=== PATIENT | male | born 1995 | race Caucasian/White ===

== ENCOUNTER 2017-10-29 21:15 | Emergency (ER) | payer SELFPAY ==
[2017-10-29 21:20] VITALS: TEMP 37.2
[2017-10-29] MEDS ORDERED: ACETAMINOPHEN 500 MG TAB PO STA (21:59)
[2017-10-29] MEDS ORDERED: DEXAMETHASONE **PF** INJ 10 MG/ML VIAL IM ONE (22:00)
[2017-10-29] MEDS ORDERED: TRAMADOL HCL 50 MG HOME PACK PO ONE (22:00)
[2017-10-29] MEDS ORDERED: METH4PAK PO (22:17)
[2017-10-29] MEDS ORDERED: OXYC1TAB3 PO (22:17)
[2017-10-29] MEDS ORDERED: TRAM-10 PO (22:17)
--- NOTE | 2017-10-29 22:28 | DIAGNOSTIC IMAGING REPORT ---
L-SPINE MIN 4 VIEWS ROUTINE CLINICAL HISTORY: 22 years-old Male presenting with R lumbar radiculitis, history of fall 3 years ago. TECHNIQUE: Frontal, bilateral oblique, lateral, and coned in lateral views lumbar spine were obtained. COMPARISON: None. FINDINGS: No scoliosis. Normal lumbar lordosis. Vertebral bodies maintain normal height and alignment. Intervertebral disc heights preserved. No degenerative change. No radiographic evidence of acute fracture or subluxation. No osseous neural foraminal narrowing. No pars defect. Visualized portion of the bony pelvis is normal. Mild stool burden. IMPRESSION: Normal radiographic evaluation of the lumbar spine. Electronically signed by: Nikolay Beltre M.D. 10/29/2017 10:27 PM Dictated Date/Time: 10/29/2017 10:26 PM
[2017-10-29 22:48] VITALS: BP 132/81; PULSE 81; O2SAT 99
--- NOTE | 2017-10-29 23:36 | EMERGENCY ROOM VISIT NOTE ---
History First contact with patient: 21:29 Chief Complaint: BACK PAIN Stated Complaint: BACK PAIN, GOING DOWN R LEG History of Present Illness The patient is a 22 year old male who presents to the Emergency Room with complaints of lower back pain going down the right leg to the thigh. The patient reports that he injured his back on Friday when he dove to catch his young son who is falling. The patient reports immediate pain radiating all the way to the right foot. Since that time, the pain is becoming more tolerable, and now extends to the right thigh region. The patient has not noticed any right lower extremity weakness, saddle anesthesias or bladder/bowel incontinence /difficulties. The patient has been taking ibuprofen and applying heat to the back without any relief. The patient is concerned as he has to go to [employer] next week for [employer] training. The patient denies any prior history of back injuries, and rates his discomfort a 6 out of 10. Review of Systems 10 system review was performed and was negative except for pertinent positives and negatives as indicated in history of present illness Past Medical/Surgical History Medical Problems: (1) Seasonal allergies Surgical Problems: (1) No history of previous surgery Family History Unremarkable Social History Smoking Status: Never Smoker Alcohol Use: none Marital Status: Housing Status: lives with family Occupation Status: employed Current/Historical Medications Scheduled Methylprednisolone (Medrol Dosepak), 0 PO DAILY Scheduled PRN Oxycodone Ir (Roxicodone Ir), 1-2 TAB PO Q4H PRN for Pain Tramadol (Ultram), 1-2 TAB PO Q4H PRN for Pain Physical Exam Vital Signs Date Time Temp Pulse Resp B/P (MAP) Pulse Ox O2 Delivery O2 Flow Rate FiO2 10/29/17 22:48 81 20 132/81 99 10/29/17 21:20 37.2 97 18 148/92 97 Room Air Physical Exam CONSTITUTIONAL: Healthy and well nourished. Alert and oriented X 3 with positive affect. Patient appears in mild discomfort. HEENT: Normocephalic, atraumatic. Pupils equal, round and reactive. NECK: Full active range of motion without discomfort. RESPIRATORY: Clear to auscultation bilaterally with no wheezing, crackles, rhonchi or stridor. CARDIOVASCULAR: Regular rate and rhythm with no murmurs, rubs or gallops. MUSCULOSKELETAL: Examination shows tenderness to palpation of the right lower back, SI joint and sciatic notch. Negative logroll. Positive straight leg raise. Ankle plantar/dorsiflexion strength is 5 out of 5 and symmetric bilaterally. Pedal pulses are intact. INTEGUMENTARY: No rash or other significant dermatologic conditions noted. NEUROLOGIC: No focal neurologic deficits noted. Right foot and toes are sensory intact. Medical Decision & Procedures ER Provider Diagnostic Interpretation: My interpretation of lumbar spine x-rays does not show any acute fractures, spondylolisthesis or other concerning bony lesions. Radiologist report is as follows: L-SPINE MIN 4 VIEWS ROUTINE CLINICAL HISTORY: 22 years-old Male presenting with R lumbar radiculitis, history of fall 3 years ago. TECHNIQUE: Frontal, bilateral oblique, lateral, and coned in lateral views lumbar spine were obtained. COMPARISON: None. FINDINGS: No scoliosis. Normal lumbar lordosis. Vertebral bodies maintain normal height and alignment. Intervertebral disc heights preserved. No degenerative change. No radiographic evidence of acute fracture or subluxation. No osseous neural foraminal narrowing. No pars defect. Visualized portion of the bony pelvis is normal. Mild stool burden. IMPRESSION: Normal radiographic evaluation of the lumbar spine. Medications Administered Medications (Trade) Dose Ordered Sig/Ericka Route Start Time Stop Time Status Last Admin Dose Admin Dexamethasone Sodium Phosphate (Dexamethasone Inj Pf) 10 mg NOW ONCE IM 10/29/17 22:00 10/29/17 22:01 DC 10/29/17 21:58 10 MG Acetaminophen (Tylenol Tab) 1,000 mg NOW STAT PO 10/29/17 21:59 10/29/17 22:00 DC 10/29/17 22:06 1,000 MG Tramadol HCl (Ultram Home Pack) 1 homepack UD ONCE PO 10/29/17 22:00 10/29/17 22:01 DC 10/29/17 22:00 1 HOMEPACK ED Course Patient history and physical exam were performed. Nurse's notes were reviewed. Vital signs were reviewed, showing a blood pressure 148/92. The patient does not appear in any significant distress on exam. X-rays of the lumbar spine were normal. The patient was administered Decadron 10 mg IM. He will receive prescriptions for a Medrol Dosepak, Ultram and OxyIR 5 mg. The patient was also encouraged alternate ibuprofen and Tylenol for baseline pain relief. Regarding the patient's concern regarding his fit for duty at [employer], I spoke with Dorinda Sadler via phone conversation. He is aware of the patient's injury. I suggested no heavy lifting, PT, sitting for long periods of time or essentially all of the heavy duty activities that the patient will be required to engage in at [employer]. The [facility] reports that they would have a medical command evaluate the patient as well. The patient voiced understanding of all discharge instructions, and rated his discomfort a 5 out of 10 at the conclusion of my exam. Medical Decision Medical exam and history at this time are not consistent with cauda equina syndrome. I do not suspect spinal abscess or hematoma. If the patient does not have a disc injury, he should progressively improve. The patient may warrant MRI if his condition is not improving, or worsens. [facility] Drug Monitoring Program Search Results: patient reviewed within database, no issues identified Medication Reconcilliation Current Medication List: was personally reviewed by me Blood Pressure Screening Patient's blood pressure: Elevated blood pressure Blood pressure disposition: Elevated BP felt to be situational, Did not require urgent referral Impression Primary Impression: Right lumbar radiculitis Departure Information Dispostion Home / Self-Care Prescriptions Oxycodone Ir (Roxicodone Ir) 5 Mg Tab 1-2 TAB PO Q4H Y for Pain, #15 TAB For Initial Treatment Prov: Basim Cunningham PA 10/29/17 Tramadol (Ultram) 50 Mg Tab 1-2 TAB PO Q4H Y for Pain, #30 TAB For Initial Treatment Prov: Basim Cunningham PA 10/29/17 Methylprednisolone (MEDROL DOSEPAK) 4 Mg Aleks 0 PO DAILY, #1 PKT Prov: Basim Cunningham PA 10/29/17 Forms HOME CARE DOCUMENTATION FORM, IMPORTANT VISIT INFORMATION Patient Instructions My [facility] Additional Instructions Intermittently apply heat to the back. Take Medrol Dosepak as prescribed, next dose tomorrow evening. Ibuprofen 800 mg and/or Tylenol 1000 mg every 8 hours. You may also alternate these medications for more effective pain relief: Ibuprofen --4 HRS--> Tylenol --4 HRS--> ibuprofen --4 HRS--> Tylenol .... Ultram if needed for additional nonsedating pain relief. OxyIR if needed for worse pain. Do not drink alcohol or drive while taking OxyIR. Follow-up with your medical commander for further reevaluation. FOR MEDICAL COMMANDER: No PT, heavy lifting greater than 20 pounds, sitting for long periods of time or other strenuous activities for the next week.
== END 2017-10-29 22:49 | disposition home or self-care (01) ==
LOC: C.EDB 21:17 → C.EDD 22:49
DX: M54.16 Radiculopathy, lumbar region (principal); X50.0XXA Overexertion from strenuous movement or load, initial encounter